=== PATIENT | male | born 1950 | race Caucasian/White ===

== ENCOUNTER 2017-05-28 07:00 | Day surgery (SDC) | payer MEDICARE, OTHER ==
[~2017-05-28] VITALS: Ht 177.8 cm; Wt 78.9 kg
[~2017-05-28 07:00] MED LIST: ASPI-973 PO; GLUC100016 PO; HYDR-4003 PO; IBUP-1827 PO; Lactated Ringer's 1,000 ML IV ONE; MULT-1018 PO; TAMS0.4C98 PO; VARD20TA30 PO
[2017-05-28] MEDS ORDERED: Propofol 10,000 mCg/mL 20 mL Inj ONE (07:01)
[2017-05-28 07:30] VITALS: BP 142/91; PULSE 60; RESP 16; O2SAT 96
--- NOTE | 2017-05-28 07:46 | PCM.HPANE ---
Patient Data Surgeon Admitting Provider: Attending Provider:Bin Tillman MD Primary Care Physician:Aquiles Harvey MD Other Provider:Tamie Wilson Anesthesia Reason for Visit Colon Polyp Ht/WT & BMI Height (Feet): 5 Height (Inches): 10 Weight (Kilograms): 78.93 Body Mass Index 24.00 Allergies Coded Allergies: No Known Allergies (Verified Allergy, Unknown, 05/27/17) Past Anesthesia History Anesthesia History: Denies:: Abnormal Airway, Anesthesia Reactions, Difficult Intubation, Fam Anesthesia Reaction, Fam Malignant Hypertherm, Malignant Hyperthermia Diabetes History Hx Diabetes?: No MRSA MRSA: No Medications Blood Thinner: Aspirin Last Dose Blood Thinner: May 26, 2017 Reported Medications Hydrocodone-Acetaminophen 5-325 mg 1 Each Tablet1 Tablet PO BID PRN For Pain Ref 0 01/09/16 Vardenafil (Levitra)20 Mg Ffgnlj02 Mg PO 01/09/16 Ibuprofen 600 Mg [id number] Mg PO BID PRN For Pain Ref 0 01/09/16 Tamsulosin (Flomax)0.4 Mg Capsule0.4 Mg PO DAILY Ref 0 01/09/16 Multivitamin (Multi Vitamin Daily)1 Each Tablet1 Each PO DAILY 30 Days Ref 0 01/09/16 Aspirin 81 Mg Aldzyh91 Mg PO DAILY Ref 0 01/09/16 Glucosamine Sulfate 2Kcl (Glucosamine)1,000 Mg Tablet1,000 Mg PO DAILY 05/31/15 History History of ENT Problems?: No HEENT History: Positive for:: Hearing Problem Denies:: Abnormal Airway Cataracts Difficult Intubation Dysphagia Glaucoma Sinus Problem TMJ Denture Type: None Teeth Condition: Within Normal Limits Hx of Heart Problems?: No Cardiovascular History: Denies:: AICD Abdominal Aortic Aneurism Atrial Fibrillation Cardiac Surgery Chest Pain Congestive Heart Failure Coronary Artery Disease Edema Heart Murmur Hypertension Irregular Heartbeat Pacemaker Peripheral Vascular Rheumatic Fever Thrombophlebitis Valvular Heart Disease Hx of Respiratory Problem?: No Respiratory History: Denies:: Asthma COPD Chest Surgery Cough Dyspnea Emphysema Hemoptysis Oxygen Administration Pneumonia Pulmonary Embolism Tuberculosis Use of C-PAP Machine Use of Inhalers / NEBS Hx Neurologic Problems?: No Neurological History: Denies:: CVA Hx of GI Problems?: Yes Other History/Comment colonic polyp Hx of Problems?: No Hx Musculoskeletal Problems?: Yes Musculoskeletal History: Positive for:: Joint Replacement (left knee) Hx of Psycho/Social Problems?: No Psycho Social History: Denies:: Anxiety Hx Depression Hx Surgeries?: Yes Hx Any Other Health Problems?: Yes Hx Diabetes: No Hx Alcohol Use: No Smoking Status: Never Smoker Stop/Bang Treated for Sleep Apnea?: No Do You Have a CPAP Machine?: No S-Snoring: Do You Snore Loudly: Yes T-Tired: feel tired, fatigued: No O-Obsered: Observed not breath: Yes P-Blood Pressure: treated: No B- Body Mass Index > 35 kg/m2: No A- Age over 50: Yes N- Neck Large Circumference: No G- Gender Male: Yes JESSIKA Total Score: 4 Risk Assessment Category Category 1A: Patient has history of documented sleep apnea, and HAS NOT received any narcotic, sedative or anesthesia administration during this stay. Category 1B: Patient has history of documented sleep apnea, and HAS received any narcotic , sedative or anesthesia administration during this stay Category 2: Patient has SUSPECTED Obstructive Sleep Apnea, and HAS received any narcotic , sedative or anesthesia administration during this stay. Category 3: Patient has SUSPECTED Obstructive Sleep Apnea and HAS NOT received narcotic, sedative or anesthesia administration during this stay. Category 4: Outpatient in Procedural Areas with known sleep apnea or who screen positive for High Risk via the STOP/BANG questionnaire. Exam Exam Vital Signs Vital Signs Date Time Temp Pulse Resp B/P Pulse Ox O2 Delivery O2 Flow Rate FiO2 05/28/17 07:30 60 16 142/91 96 Room Air General Appearance: Alert, Oriented X3, Cooperative HEENT/AIRWAY: MP 2 Lungs: Clear to Auscultation Heart: Exam Unremarkable Plan Impression Patient chart reviewed, patient interviewed and anesthestic plan with risks, benefits, and alternatives discussed, and informed consent obtained. ASA Physical Status: ASA2 Mod Systemic Disease Anesthetic Plan: TIVA Bene/Risks/Altern/Consents: Yes HP Complete Prior to Induction: Yes Kodi Young MD May 28, 2017 07:46
[2017-05-28 08:48] VITALS: BP 113/69; PULSE 58; RESP 16; O2SAT 97
--- NOTE | 2017-05-28 08:51 | PCM.ANEP1 ---
Post Anesthesia PACU Phase 1 Assessment Vital Signs Vital Signs Date Time Temp Pulse Resp B/P Pulse Ox O2 Delivery O2 Flow Rate FiO2 05/28/17 08:48 58 16 113/69 97 Room Air 05/28/17 07:30 60 16 142/91 96 Room Air Anesthetic Administered: GA Level of Alertness: Awake, talking SOARES's with Equal Strength: Yes Pain: No Nausea or Vomiting: No CV Function & Hydration Stable: Yes Airway Device: Oxygen Delivery: Nasal Cannula Lungs: Clear to Auscultation PACU Phase 2 Assessment Complications: No Follow up Care: No Patient Instructions Provided: N/A Kodi Young MD May 28, 2017 08:51
[2017-05-28 08:58] VITALS: BP 127/68; PULSE 52; RESP 16; O2SAT 97
--- NOTE | 2017-05-28 09:34 | ENDO ---
[address] [address] ENDOSCOPY PROCEDURE PATIENT: JESUS RODRIGUEZ : 1950 MR#: [id number] ADMIT: 05/28/2017 JOB ID: [id number] DATE OF SERVICE: 05/28/2017 PREOPERATIVE DIAGNOSES: 1. Personal history of colon polyps. 2. Family history of colon cancer. POSTOPERATIVE DIAGNOSIS: Hepatic flexure polyp. PROCEDURE: Colonoscopy with cold forceps polypectomy. SURGEON: Bin Tillman MD. INDICATIONS: A 66-year-old man who has a family history of colon cancer (sister in her 50s) and a personal history of colon polyps. He had a large flat polyp at the hepatic flexure that was removed and then tattooed. He is here for followup colonoscopy. FINDINGS: He had a good prep. The scope was advanced into the cecum. The withdrawal time was 10 minutes and 58 seconds. The tattooed region of the hepatic flexure was clearly visualized. It was photographed. There was no evidence of recurrence, but in the kati flexure region, there was a small adenomatous appearing polyp that was removed with multiple cold forceps bites. No other polyps were identified. Retroflexed views of the rectum were normal. I saw no diverticula. PROCEDURE: The procedure and sedation plan was discussed with the patient, nursing staff, and also with Dr. Don Young MD from Anesthesia who provided sedation. A procedural time-out was called. A digital rectal exam was performed and then the Olympus [id number] video colonoscope was passed transanally. As the scope was being advanced, I identified the tattooed region and hepatic flexure. Accessing the cecum was difficult requiring multiple areas of compression and ultimately placing him on to his back, but I did access the cecum. Both when the scope was being advanced, and also when it was being withdrawn, the 2-3 mm polyp in the region of the hepatic flexure was identified with multiple biopsies was grossly removed. No other polyps were identified. There was no complications. There was no bleeding. IMPRESSION: Hepatic flexure polyp. PLAN: We will call him with the results of histology, but I plan to do a colonoscopy in three years. Cc: Aquiles Harvey MD [facility]
--- NOTE | 2017-06-04 09:31 | PATH ---
SURGICAL PATHOLOGY Attending Physician:Hector Tafoya CASE STATUS: Signed Out PATIENT NAME: JESUS RODRIGUEZ PID: [id number] : 1950 DATE COLLECTED:05/28/2017 15:45 SPECIMEN: Colon, Polyp CLINICAL HISTORY: 1. HEPATIC FLEXURE POLYP FINAL DIAGNOSIS: Hepatic Flexure Polyp, Biopsy: Fragments of sessile serrated adenoma x3. Superficial portion of colorectal mucosa x1 with no diagnostic abnormality. ICD10: K63.5 GROSS DESCRIPTION: The specimen is received in formalin, labeled with the patient's name, sublabeled as hepatic flexure polyp, and consists of multiple fragments of mann glistening semitranslucent rubbery tissue (0.5 x 0.4 x 0.2 cm in aggregate). Section code: (A) tissue. Specimen entirely submitted. 05/28/17 ICD-9 CODES: CPT CODES: 1: 44431 Electronically Signed Out Carli Maravilla MD [facility] Pathology [facility] [address], [place] [address] Technical component performed at [facility], [facility] [address], [place], [address]
== END 2017-05-28 23:59 | disposition home or self-care (01) ==
LOC: END 07:00
PROVIDERS: ATTEND Surgery
DX: D12.3 Benign neoplasm of transverse colon (principal); Z86.010 Personal history of colon polyps; Z80.0 Family history of malignant neoplasm of digestive organs
CPT/HCPCS: 45380; 88305; J7120